=== PATIENT | male | born 1945 | race Caucasian/White ===

== ENCOUNTER → 2018-12-03 | Outpatient (CLI) | payer OTHER ==
[~2018-12-03] VITALS: Ht 167.6 cm; Wt 74.8 kg
[~2018-12-03] MED LIST: CELEBREX 200 M200 M1 PO; COLACE100 MG PO; FLEXERIL PO; FLOMAX0.4 MG PO; LIPITOR20 MG PO; LOPID600 MG PO; MICARDIS 80 MG80 MG PO; MIRALAX17 GM PO; PERCOCET 10-321 EACH PO; PROSCAR 5MG TABL5 MG PO; SENNA PO; TRAMADOL 50 MG50 MG PO; TYLENOL325 MG PO; VITAMIN D1000 UNI1 PO; XARELTO10 M1 PO; ZANAFLEX4 MG PO
--- NOTE | ~2018-12-03 | P ---
[facility] [place] [address] PROCEDURE REPORT Name: DEREK MOONEY Room #: REG [facility]#: [id number] Admission: 12/03/18 ������������������ Attend Phys: Sean Gould MD Discharge: ������������������ Date of : 49 Report #: [id number] THIS REPORT FOR: //name// CC: Saima Gould DATE OF SERVICE: 12/03/2018 BRIEF HISTORY: The patient is a 73-year-old male with a lifetime polyp count of 10 for high-risk screening colonoscopy. PREOPERATIVE DIAGNOSIS: High-risk screening colonoscopy. POSTOPERATIVE DIAGNOSES: 1. Diminutive polyp, mid transverse colon. 2. Moderately severe diverticulosis coli, primarily sigmoid colon. MEDICATIONS: Deep sedation with propofol per anesthesia. SPECIMEN: Mid sigmoid colon polyp. ESTIMATED BLOOD LOSS: 3 mL. PROCEDURE: Colonoscopy to cecum and terminal ileum with biopsy. FINDINGS: Prior to propofol sedation, procedure of colonoscopy discussed with the patient as well as potential risks and its complications. He indicates he understands and desires to proceed. DESCRIPTION OF PROCEDURE: With the patient in left lateral decubitus position, digital examination was completed, which revealed no abnormalities. Subsequently, the Olympus video colonoscope was introduced in the rectum, advanced under direct vision to the cecum. Done with minimal difficulty. The cecum was identified by the ileocecal valve and the appendiceal orifice. I was able to visualize the distal segment of terminal ileum, which was inspected and noted to be unremarkable. At that point, the scope was slowly withdrawn and careful circumferential views were obtained. Upon slow withdrawal of the scope, there were noted to be some limitations of prep in the proximal colon. There were tiny medication sphericals remaining in the proximal colon. We attempted to clear all this material, but we were unable to do so as the material clogged our scope. Once we relieved the clogged scope, it was felt that we could not remove all this material, so there were some minor limitations of the proximal colon. As we withdrew the scope through the colon, we cleaned up as well as possible. From much of the colon, reasonably good views were obtained; however, there were limitations proximally. Within the mid transverse colon, a [facility] [address] [place] [address] PROCEDURE REPORT Name: DEREK MOONEY Room #: REG [facility].#: [id number] Admission: 12/03/18 ������������������ Attend Phys: Sean Gould MD Discharge: ������������������ Date of : 49 Report #: [id number] diminutive polyp was seen and removed with biopsy forceps. Scope was further withdrawn and no additional neoplastic lesions were seen. In the sigmoid colon, there was noted to be moderate to severe sigmoid diverticular disease without endoscopic evidence of diverticulitis. The scope was withdrawn in the rectum. Upon retroflexion, no abnormalities were seen. Scope was withdrawn. The patient tolerated the procedure well. CONDITION OF THE PATIENT UPON DISCHARGE: Following procedure, the patient drowsy, aroused, conversant and will be discharged home when fully ambulatory. INSTRUCTIONS TO THE PATIENT AND FAMILY AT THE TIME OF DISCHARGE: One small polyp removed. There were some minor limitations of prep in the proximal colon. Therefore, due to his high lifetime polyp count, finding of polyp and prep limitations, we will have him return in three years for a high-risk screening colonoscopy. His last colonoscopy was little more than three years ago. Withdrawal time from the cecum was 14 minutes and 2 seconds. ��������������������������������������������� ���������������������������������������� By: ��������������������������������������������� 0913 1310 Sean Gould MD /nt
--- NOTE | 2018-12-04 17:06 | PATH ---
[facility] [address] [place] [address] PATHOLOGY RPT PROCEDURE Name: DEREK MOONEY Room #: REG [facility].#: [id number] ������������������ Admission: 12/03/18 ������������������ Date of : 49 Discharge: Report #: [id number] Path Case #: [id number] [facility] Accession Number: [id number] . 01 Material submitted: . colon - POLYP AT MID TRANSVERSE COLON. Modifiers: mid, transverse . 01 Clinical history: . History polyps Colon polyp, diverticulosis, hemorrhoids . 02 Diagnosis: Polyp, at mid transverse colon, endoscopic biopsy: - Hyperplastic polyp. - Negative for dysplasia. . (IUV:mml; 12/04/2018) QLM/12/04/2018 . 02 Electronically signed: . Yakelin Del Rio MD, Pathologist NPI- [id number] . 01 Gross description: . The specimen is received in formalin, labeled "Derek Mooney, polyp at mid transverse colon" and consists of a fragment of pink-mac tissue measuring 0.3 x 0.3 x 0.2 cm which is entirely submitted in A1. (SDY; 12/03/2018) SYU/SYU . 02 Pathologist provided ICD-10: K63.5 . 02 CPT . 410790 Specimen Comment: A courtesy copy of this report has been sent to Specimen Comment: [phone], . Specimen Comment: Report sent to / DR GREENWOOD Performed at: [address], [place], [place] [id number] MD Travis Manzanares MD Phone: [phone] Performed at: [address] [id number] MD Yakelin Del Rio MD Phone: [phone]
== END | disposition home or self-care (01) ==
LOC: GI 06:59
DX: Z12.11 Encounter for screening for malignant neoplasm of colon (principal); Z86.010 Personal history of colon polyps; D12.3 Benign neoplasm of transverse colon; K57.30 Diverticulosis of large intestine without perforation or abscess without bleeding; K63.5 Polyp of colon; I10 Essential (primary) hypertension; E78.00 Pure hypercholesterolemia, unspecified; G43.909 Migraine, unspecified, not intractable, without status migrainosus; K21.9 Gastro-esophageal reflux disease without esophagitis; Z96.642 Presence of left artificial hip joint; N40.0 Benign prostatic hyperplasia without lower urinary tract symptoms; Z98.52 Vasectomy status; Z98.890 Other specified postprocedural states; Z79.899 Other long term (current) drug therapy; Z88.0 Allergy status to penicillin; Z88.8 Allergy status to other drugs, medicaments and biological substances
CPT/HCPCS: 62110; 62900